=== PATIENT | female | born 1985 | race Caucasian/White ===

== ENCOUNTER 2019-07-27 12:21 | Emergency (ER) | payer SELFPAY ==
--- NOTE | 2019-07-27 12:44 | ER Document Report ---
ED Medical Screen (RME) - General Chief Complaint: Headache Stated Complaint: HEADACHE,NECK PAIN Time Seen by Provider: 07/27/19 12:32 Mode of Arrival: Ambulatory Information source: Patient Notes: Patient is a 34-year-old female presenting to the emergency department with chief complaint of abnormal labs and requesting a brain MRI. Patient reports she was recently discharged from a psychiatric facility in [place], she states that she has been having recurrent headaches and she thinks there is a lump on the side of her neck. Patient reports that she needs an MRI. Patient also reports abnormal labs drawn and [place] which they did not address. Patient is talking about particular parts of her CBC. Patient denies any suicidal homicidal ideations. I have greeted and performed a rapid initial assessment of this patient. A comprehensive ED assessment and evaluation of the patient, analysis of test results and completion of the medical decision making process will be conducted by additional ED providers. I have specifically instructed the patient or family members with the patient to immediately return to any nursing staff should anything change in the patient's condition or with their chief complaint. TRAVEL OUTSIDE OF THE [place] IN LAST 30 DAYS: No - Related Data Allergies/Adverse Reactions: iodine Allergy (Verified 07/27/19 12:31) shellfish derived Allergy (Verified 07/27/19 12:31) Home Medications: "bipolar 1 disorder medication". Trazodone Past Medical History - Social History Chew tobacco use (# tins/day): No Frequency of alcohol use: None Drug Abuse: None
[2019-07-27 13:00] LABS: ABSOLUTE EOSINOPHILS # (AUTO) 0.1 10^3/uL (0.0-0.6); ABSOLUTE LYMPHOCYTES (AUTO) 2.2 10^3/uL (0.5-4.7); ABSOLUTE MONOCYTES (AUTO) 1.1 10^3/uL (0.1-1.4); ABSOLUTE NEUT (AUTO) 4.7 10^3/uL (1.7-8.2); BASOPHILS % (AUTO) 0.6 % (0-2); EOSINOPHILS % (AUTO) 1.8 % (0-6); HEMATOCRIT 42.2 % (36.0-47.0); HEMOGLOBIN 14.3 g/dL (12.0-15.5); LYMPHOCYTES % (AUTO) 26.7 % (13-45); MEAN CORPUSCULAR HEMOGLOBIN 32.7 pg (27.0-33.4); MEAN CORPUSCULAR HGB CONC 33.9 g/dL (32.0-36.0); MEAN CORPUSCULAR VOLUME 97 fl (80-97); MONOCYTES % (AUTO) 13.3 % (3-13); PLATELET COUNT 205 10^3/uL (150-450); RED BLOOD COUNT 4.37 10^6/uL (3.72-5.28); RED CELL DISTRIBUTION WIDTH 12.7 % (11.5-14.0); SEGMENTED NEUTROPHILS % (AUTO) 57.6 % (42-78); TOTAL CELLS COUNTED % (AUTO) 100 %; WHITE BLOOD COUNT 8.1 10^3/uL (4.0-10.5)
[2019-07-27 13:15] LABS: ALBUMIN 4.3 g/dL (3.5-5.0); ALKALINE PHOSPHATASE 63 U/L (38-126); ANION GAP 10 (5-19); ASPARTATE AMINO TRANSFERASE 22 U/L (14-36); BILIRUBIN,DIRECT 0.2 mg/dL (0.0-0.4); BILIRUBIN,TOTAL 0.7 mg/dL (0.2-1.3); BLOOD UREA NITROGEN 12 mg/dL (7-20); CALCIUM 9.7 mg/dL (8.4-10.2); CARBON DIOXIDE 28 mmol/L (22-30); CHLORIDE 99 mmol/L (98-107); GLUCOSE 90 mg/dL (75-110); POTASSIUM 4.2 mmol/L (3.6-5.0); TOTAL PROTEIN 7.3 g/dL (6.3-8.2)
[2019-07-27 13:39] LABS: APPEARANCE,URINE CLEAR; BILIRUBIN,URINE NEGATIVE (NEGATIVE); COLOR,URINE STRAW; GLUCOSE, URINE NEGATIVE (NEGATIVE); KETONES,URINE NEGATIVE (NEGATIVE); LEUKOCYTE ESTERASE,URINE NEGATIVE (NEGATIVE); NITRITE,URINE NEGATIVE (NEGATIVE); PROTEIN,URINE NEGATIVE (NEGATIVE); UROBILINOGEN,URINE NEGATIVE mg/dL (<2.0)
[2019-07-27 14:42] LABS: INTERNATIONAL RATION (INR) 0.86; PARTIAL THROMBOPLASTIN TIME 25.3 SEC (23.5-35.8); PROTHROMBIN TIME 11.7 SEC (11.4-15.4)
[2019-07-27 15:02] LABS: URINE BARBITURATES SCREEN NEGATIVE; URINE BENZODIAZEPINES SCREEN NEGATIVE; URINE COCAINE SCREEN NEGATIVE; URINE MARIJUANA (THC) SCREEN NEGATIVE; URINE METHADONE SCREEN NEGATIVE; URINE PHENCYCLIDINE SCREEN NEGATIVE
[2019-07-27 15:17] LABS: URINE AMPHETAMINES SCREEN UNCONFIRMED POSITIVE
[2019-07-27 16:49] VITALS: BP 130/92
--- NOTE | 2019-07-27 16:54 | ER Document Report ---
ED General - General Chief Complaint: Headache Stated Complaint: HEADACHE,NECK PAIN Time Seen by Provider: 07/27/19 12:32 Mode of Arrival: Ambulatory Notes: 34-year-old female presents emergency department complaining of intermittent taking/burning/snapping pains that she feels both on the inside and the outside of her head. She states they are intermittently associated with a deep or divot in her skull on the right parietal area that comes and goes. Patient states that this is been going on on and off for several years but now it is worse and she is getting frequent sharp stabbing pains that intermittently dance all over her head. Patient has never tried anything to decrease these pains as she states they are only there for a second and then resolve. Patient states that she has been seen at multiple other facilities for this but she feels like she needs an MRI and nobody has been willing to do one in the past. States the reason she came in today was because for the past 3 weeks they have been coming more frequently. They are not associated with any numbness, tingling, weakness, slurred speech, b lurry vision, fevers or neck stiffness. Denies any injury. TRAVEL OUTSIDE OF THE [place] IN LAST 30 DAYS: No - Related Data Allergies/Adverse Reactions: iodine Allergy (Verified 07/27/19 12:31) shellfish derived Allergy (Verified 07/27/19 12:31) Home Medications: "bipolar 1 disorder medication". Trazodone Past Medical History - General Information source: Patient - Social History Smoking Status: Current Every Day Smoker Chew tobacco use (# tins/day): No Frequency of alcohol use: Social Drug Abuse: None Family History: Reviewed & Not Pertinent Patient has suicidal ideation: No Patient has homicidal ideation: No Review of Systems - Review of Systems Constitutional: No symptoms reported EENT: See HPI - Intermittent sharp stabbing pains that come from her head and her neck.. denies: Blurred vision, Double vision Cardiovascular: No symptoms reported Respiratory: No symptoms reported Neurological/Psychological: See HPI, Headaches -: Yes All other systems reviewed and negative Physical Exam - Vital signs Vitals: Temp Pulse Resp BP Pulse Ox 98.4 F 151 H 22 H 130/93 H 100 07/27/19 12:30 07/27/19 12:30 07/27/19 12:30 07/27/19 12:30 07/27/19 12:30 Interpretation: Tachycardic Notes: Which has significantly improved by the time I examine her. - Notes Notes: GENERAL: Alert, awake. HEAD: Normocephalic, atraumatic. Unable to palpate the give it to that she reports is intermittently present in her skull. EYES: Pupils equal, round and reactive to light, extraocular movements intact. ENT: Oral mucosa moist, tongue midline. NECK: Full range of motion, supple, trachea midline. Planes of tenderness when I palpate her paraspinal muscles, no midline bony tenderness palpation, none of my palpation creates stabbing pains in her head. LUNGS: Clear to auscultation bilaterally, no wheezes, rales or rhonchi, no respiratory distress. HEART: Mild tachycardic rate and rhythm, no murmurs, gallops, rubs. ABDOMEN: Soft, complains of mild diffuse tenderness to palpation across her entire abdomen, no guarding, no rigidity, no rebounding, nondistended, bowel sounds present in all 4 quadrants. EXTREMITIES: Moves all 4 extremities spontaneously, no edema, radial and dorsalis pedis pulses 2/4 bilaterally. No cyanosis. NEUROLOGICAL: Alert and oriented x3, speech slightly pressured but not slurred, cranial nerves II through XII grossly intact, biceps and patellar DTRs 2+ bilaterally. Finger-nose and [id number] testing intact. PSYCH: Mildly pressured speech, seems irritated. SKIN: Warm, Dry, normal turgor, a few lesions are noted on her face consistent with picking Course - Re-evaluation Re-evalutation: 07/27/19 16:54 CBC shows monocytosis otherwise unremarkable, CMP unremarkable, coags normal, urinalysis unremarkable, urine drug screen confirms amphetamines which she is supposed to be taking for ADHD. No acute findings are seen today. Discussed with patient that while her sympt oms are concerning and certainly interfere with her quality of life that none of them require an emergent MRI. Patient is agreeable to following up with a neurologist as an outpatient to further discuss these intermittent pains and symptoms. Patient is agreeable also to trialing either ibuprofen or acetaminophen in the morning for the next few days to see if it decreases the number of time she has these pains and how severe they are. Patient is discharged home. - Vital Signs Vital signs: Temp Pulse Resp BP Pulse Ox 98.3 F 106 H 16 130/92 H 100 07/27/19 16:48 07/27/19 16:48 07/27/19 16:48 07/27/19 16:48 07/27/19 16:48 - Laboratory Result Diagrams: 07/27/19 12:47 07/27/19 12:47 Laboratory results interpreted by me: 07/27/19 12:47 [place] % (Auto) 13.3 H Discharge - Discharge Clinical Impression: Head pain Qualifiers: Headache type: unspecified Headache chronicity pattern: chronic headache Intractability: not intractable Qualified Code(s): R51 - Headache Condition: Stable Disposition: HOME, SELF-CARE Additional Instructions: I do not know exactly what is causing these intermittent pains on your head. Today I did not see any acute neurologic deficits that would require an MRI today. I strongly encourage you to follow-up with a neurologist as an outpatient to further investigate why are you having these pains all over your head. I do recommend that you try taking either ibuprofen 800 mg or acetaminophen 1000 mg once in the morning each day for the next 5 days to see if it decreases the frequency or intensity of this pain. I have given you the name of a local neurologist however you also stated that you live in [place]. If you go onto [facility]'s website you sh ould be able to check their website for neurologists who work at [facility] that may be more convenient to your house. Please return for fevers, loss of vision, inability to move your arms or your legs or any new or concerning symptoms. Referrals: LEAH SWAIN MD [NO LOCAL MD] - Follow up as needed
== END 2019-07-27 15:20 | disposition home or self-care (01) ==
LOC: ER 12:21
DX: R51 Headache (principal); M54.2 Cervicalgia; R00.0 Tachycardia, unspecified; F90.9 Attention-deficit hyperactivity disorder, unspecified type; Z79.899 Other long term (current) drug therapy; F17.200 Nicotine dependence, unspecified, uncomplicated; Z91.013 Allergy to seafood
CPT/HCPCS: 36415; 80053; 80307; 81001; 85025; 85610; 85730; 99284

== ENCOUNTER 2019-08-18 05:39 | Emergency (ER) | payer SELFPAY ==
[2019-08-18 06:00] VITALS: BP 147/108
[2019-08-18 06:33] LABS: A TYPE INFLUENZA AG NEGATIVE (NEGATIVE); B INFLUENZA AG NEGATIVE (NEGATIVE)
[2019-08-18 09:05] LABS: APPEARANCE,URINE SLIGHTLY-CLOUDY; BILIRUBIN,URINE NEGATIVE (NEGATIVE); COLOR,URINE YELLOW; GLUCOSE, URINE NEGATIVE (NEGATIVE); KETONES,URINE NEGATIVE (NEGATIVE); LEUKOCYTE ESTERASE,URINE NEGATIVE (NEGATIVE); NITRITE,URINE NEGATIVE (NEGATIVE); PROTEIN,URINE NEGATIVE (NEGATIVE); URINE SPECIFIC GRAVITY 1.016; UROBILINOGEN,URINE NEGATIVE mg/dL (<2.0)
== END 2019-08-18 10:43 | disposition left against medical advice (07) ==
LOC: ER 05:39
DX: Z53.21 Procedure and treatment not carried out due to patient leaving prior to being seen by health care provider (principal)
CPT/HCPCS: 81001; 87804